=== PATIENT | female | born 1995 | race African-American/Black ===

== ENCOUNTER 2023-08-31 00:13 | Observation (INO) | payer MEDICAID, SELFPAY ==
[2023-08-31] VITALS (13 sets, daily range): BP systolic 115–143; BP diastolic 66–90; PULSE 66–87; RESP 16; TEMP 36.6–36.8; O2SAT 97–99; BMI 22.2
[2023-08-31 01:22] LABS: Hematocrit 32.7 % (33.0-51.0); Hemoglobin* 10.7 gm/dL (12.0-16.0); Mean Corpuscular HGB Conc 33 gm/dL (32-36); Mean Corpuscular Hemoglobin 30 pg (26-34); Mean Corpuscular Volume 92 fL (80-100); Platelet Count* 257 K/uL (140-440); Red Blood Count 3.56 m/uL (4.00-5.20); White Blood Count* 5.51 K/uL (4.50-11.00)
[2023-08-31 01:23] LABS: Slide Review Reflex No
[2023-08-31 01:39] LABS: Total Protein Urine < 5 mg/dL
[2023-08-31 01:40] LABS: Creatinine Urine 131.4 mg/dL
--- NOTE | 2023-08-31 01:44 | P.OBLDTN_ITS ---
OB - Triage/Final Diagnosis Visit Information Time Seen by Provider: 01:44 Date Seen: 08/31/23 Date of evaluation: 08/31/23 Narrative: Josue is a 27 year old 4 para 4004 at status post normal spontaneous vaginal delivery. She is currently day 7. She presented to her home hospital ([place] [address]) with a headache. She was found to have mild range in blood pressures 140s -150s/90s-100s. [place] [address] requested a transfer due to bed shortage. Prior to transfer, [place] [address] reports that her headache improved with toradol and her BP decreased to 130s/80-90s. Her PreE labs were within normal limits (Plt 249, ALT 31/ AST 26, Cr 0.52). I assessed patient upon her arrival. She was completely asymptomatic and all her BP were within normal limits. I ordered another set of PreE labs upon admission. It was significant for a bump in her AST to 48, otherwise, wnl. Patient is reluctant to stay given that she feels better. I recommended that she stays overnight for BP monitoring and another set of repeat labs in the AM prior to discharge. Patient denies fever, chills, chest pain, SOB, n/v, headache, vision changes, RUQ pain, or dizziness. Update: AM lab showed elevation in AST to 71. Physical exam: General: No acute distress Psych: Alert and oriented x4, full affect HEENT: Normocephalic, atraumatic Neck: No cervical adenopathy, no thyromegaly Heart: Regular rate and rhythm, no murmur rub or gallop Lungs: Clear to auscultation bilaterally Abdomen: Normoactive bowel sounds, soft, no tenderness, rebound, or guarding, no masses, no hepatosplenomegaly, no hernias Skin: No lesions or rashes. Celeste on her legs Lower extremities: No edema or erythema Pelvic exam: Deferred GHTN with severe features ? Based on AST 2x the upper limit of normal. P/C ratio 0.00 ? BPs 110-130s/60-80s ? Symptoms: initially presented with headache that has resolved with Tordol x 1 ? Magnesium: Will start Magnesium for seizure ppx for 24 hours ? IV antihypertensives: currently unindicated ? Pre-eclampsia labs on 08/31/2023: Hgb 10.9 Plt 248 Cr 0.4 ALT 33 AST 71 ? 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
[2023-08-31 01:52] LABS: Aspartate Amino Transferase* 48 U/L (12-35); Creatinine* 0.5 mg/dL (0.5-1.5); Est. Creatinine Clearance* 193.31; Estimated Glomerular Filt Rate 131 ml/min
[2023-08-31 01:53] LABS: Alanine Aminotransferase* 35 U/L (4-35); Blood Urea Nitrogen* 14 mg/dL (5-24)
[2023-08-31] MEDS: ACETAMINOPHEN 500 MG TABLET 1000 MG PO ×2 (06:15→14:11)
[2023-08-31 07:09] LABS: Hematocrit 33.8 % (33.0-51.0); Hemoglobin* 10.9 gm/dL (12.0-16.0); Mean Corpuscular HGB Conc 32 gm/dL (32-36); Mean Corpuscular Hemoglobin 30 pg (26-34); Mean Corpuscular Volume 92 fL (80-100); Platelet Count* 248 K/uL (140-440); Red Blood Count 3.67 m/uL (4.00-5.20); White Blood Count* 5.02 K/uL (4.50-11.00)
[2023-08-31 07:13] LABS: Slide Review Reflex No
[2023-08-31 07:21] LABS: Alanine Aminotransferase* 33 U/L (4-35); Aspartate Amino Transferase* 71 U/L (12-35); Blood Urea Nitrogen* 12 mg/dL (5-24); Creatinine* 0.4 mg/dL (0.5-1.5); Est. Creatinine Clearance* 241.64; Estimated Glomerular Filt Rate 138 ml/min
[2023-08-31] MEDS: MAGNESIUM IV 4 GM/100 ML PIGGYBACK IVPB (08:22)
[2023-08-31] MEDS: LACTATED RINGERS 1000 ML 1,000 ML 75 ML IV ×2 (08:22→21:20)
[2023-08-31] MEDS: IBUPROFEN 600 MG TABLET PO ×2 (12:45→19:31)
[2023-09-01] MEDS: ACETAMINOPHEN 500 MG TABLET 1000 MG PO (00:59)
[2023-09-01 01:00] VITALS: BP 116/75; PULSE 87; RESP 16; TEMP 36.4; O2SAT 98
[2023-09-01] MEDS: IBUPROFEN 600 MG TABLET PO ×2 (03:02→09:06)
[2023-09-01 03:13] VITALS: BP 123/80; PULSE 62; RESP 16; TEMP 36.3; O2SAT 98
[2023-09-01 07:40] VITALS: BP 145/80; PULSE 92; RESP 16; TEMP 36.6; O2SAT 97
[2023-09-01 08:00] VITALS: BP 154/102
[2023-09-01 08:12] LABS: Hematocrit 39.6 % (33.0-51.0); Hemoglobin* 12.8 gm/dL (12.0-16.0); Mean Corpuscular HGB Conc 32 gm/dL (32-36); Mean Corpuscular Hemoglobin 30 pg (26-34); Mean Corpuscular Volume 91 fL (80-100); Platelet Count* 291 K/uL (140-440); Red Blood Count 4.34 m/uL (4.00-5.20); White Blood Count* 4.54 K/uL (4.50-11.00)
[2023-09-01] MEDS: NIFEdipine 30 MG TAB.ER.24 PO (08:12)
[2023-09-01 08:17] LABS: Slide Review Reflex No
--- NOTE | 2023-09-01 08:21 | PM.OBPNVD1 ---
OB - PN:Subj Subjective Time Seen by Provider: 08:00 Date Seen: 09/01/23 Narrative: The patient complains of feeling dizzy on the magnesium infusion. Headache is resolved. No other complaints. OB - PN: Obj Exam Physical Exam: Vital signs: Temp Pulse Resp BP Pulse Ox O2 Del Method 98 F 92 16 154/102 H 97 Room Air 09/01/23 07:40 09/01/23 07:40 09/01/23 07:40 09/01/23 08:00 09/01/23 07:40 09/01/23 07:40 Constitutional: Constitutional: no acute distress Routine Respiratory Exam: Respiratory: Present CTA bilaterally; Absent respiratory distress Routine Cardiovascular Exam: Cardiovascular: Present RRR; Absent murmur Routine Extremities Exam: Extremities: Present normal inspection and pedal edema; Absent calf tenderness Routine Neurological Exam: Neurological: Present alert and oriented X3 Routine Psychiatric Exam: Psychiatric: Present normal affect OB - PN: Obj Data Labs Labs: Laboratory Results - last 24 hr 09/01/23 08:01 WBC 4.54 RBC 4.34 Hgb 12.8 Hct 39.6 MCV 91 MCH 30 MCHC 32 Plt Count 291 OB - PN: A/P Delivery Assessment and Plan (1) Pre-eclampsia in period: Status: Acute Plan 1. Magnesium sulfate infusion is due to be discontinued at 8:30 a.m. this morning. Blood pressures have been creeping up. Will start nifedipine ER 30 mg daily. Continue to monitor blood pressures. 2. AST had been trending upwards. Will check another set of labs this morning. Plan day: 8
[2023-09-01 08:27] LABS: Alanine Aminotransferase* 30 U/L (4-35); Aspartate Amino Transferase* 40 U/L (12-35); Blood Urea Nitrogen* 9 mg/dL (5-24); Creatinine* 0.4 mg/dL (0.5-1.5); Est. Creatinine Clearance* 241.64; Estimated Glomerular Filt Rate 138 ml/min
[2023-09-01 10:29] VITALS: BP 130/80; PULSE 92; RESP 16; TEMP 36.6; O2SAT 96
[2023-09-01 13:56] VITALS: BP 138/92; PULSE 82; RESP 16; TEMP 36.9; O2SAT 100
--- NOTE | 2023-09-01 16:09 | PM.OBDSVD1 ---
DS: Providers Provider Time Seen by Provider: 16:09 Date Seen: 09/01/23 Date of admission: 08/31/23 00:13 Primary care physician: Michaela Barron Admitting Clinician: Simran Rodriguez MD Attending Physician on discharge: Kristen Goodwin MD Date of Discharge: 09/01/23 DS: Diagnosis Discharge Diagnosis (1) Pre-eclampsia in period: Status: Acute Exam Const: Vital Signs, click to edit/add: Vital Signs - 24 hr 08/31/23 19:48 09/01/23 01:00 09/01/23 03:13 Temperature 97.8 F 97.6 F 97.4 F L Pulse Rate [Blood Pressure Cuff] 69 87 62 Respiratory Rate 16 16 16 Blood Pressure [Le ft Arm] 131/90 H 116/75 123/80 Pulse Oximetry 98 98 98 Oxygen Delivery Me thod Room Air Room Air Room Air 09/01/23 07:40 09/01/23 08:00 09/01/23 10:29 Temperature 98 F 97.9 F Pulse Rate [Blood Pressure Cuff] 92 92 Respiratory Rate 16 16 Blood Pressure [Le ft Arm] 145/80 H 154/102 H 130/80 Pulse Oximetry 97 96 Oxygen Delivery Me thod Room Air Room Air 09/01/23 13:56 Temperature 98.4 F Pulse Rate [Blood Pressure Cuff] 82 Respiratory Rate 16 Blood Pressure [Le ft Arm] 138/92 H Pulse Oximetry 100 Oxygen Delivery Me thod Room Air Documenting provider has reviewed patient's vital signs: yes Common normals: no apparent distress and oriented x3 General appearance: cooperative and comfortable HENMT: Common normals: normocephalic Head and scalp: normocephalic Resp: Common normals: normal respiratory effort Cardio: Common normals: regular rate and regular rhythm Rate: regular rate Rhythm: regular rhythm GI: Common normals: soft to palpation and non-tender Inspection: normal to inspection Palpation: soft Extremity: Common normals: normal to inspection and no pedal edema Neuro: Common normals: oriented x3 Psych: Common normals: affect normal OB - DS: Summary Hospital Course Hospital Course: The patient is a 27 year old G 4 P 4004 that was admitted to the Center on 08/31/23 for preeclampsia with severe features on post day number 7. She had presented to her home hospital ([facility]) with a headache. She was found to have mild range in blood pressures 140s -150s/90s-100s. [facility] requested a transfer due to bed shortage. Her PreE labs were initially within normal limits (Plt 249, ALT 31/ AST 26, Cr 0.52). Labs done on admission to [facility] showed elevation of the AST to 71. The patient was admitted and started on magnesium sulfate infusion. This was continued for 24 hours. Blood pressures were mildly elevated overnight, and she was started on nifedipine ER 30 mg p.o. daily when the magnesium sulfate infusion was discontinued. Blood pressures have remained in the 130s over 80s to 92 since. Her headache is completely resolved, and she feels well. She requested discharge to home. Time Spent with Patient Time attestation: Total time spent providing and/or coordinating discharge services: Discharge Plan Discharge Disposition: Home, Self-Care Date of Admission: 08/31/23 00:13 Attending Provider on Discharge: Kristen Goodwin Primary Care Provider: Michaela Barron Condition: Stable Anticipated Discharge Date/Time: 09/01/23 16:18 Discharge Medications: New nifedipine 30 mg Tablet Extended Release 24hr 30 mg PO DAILY Qty: 60 0RF Discharge Orders: Discharge Order (Routine); Ordered 09/01/23 Ordered By: Kristen Goodwin Additional Instructions: Check blood pressure daily. Call your primary provider if blood pressure greater than 160/110. Follow-up in 1-2 weeks with primary provider for early visit and blood pressure check. Activity Level: Activity as Tolerated Discharge Diet: Regular Follow Up Appointments: Michaela Barron [Primary Care Provider] - Forms: [employer] Info Instructions Lab/Imaging Results Lab Results Labs: Discharge labs from 09/01/2023: Hemoglobin 12.8 Platelets 291 Creatinine 0.4 BUN 9 ALT 30 AST 40
== END 2023-09-01 16:55 | disposition home or self-care (01) ==
PROVIDERS: Obstetrics & Gynecology; Admitting Provider Obstetrics & Gynecology; PCP Internal Medicine; Visit Provider Obstetrics & Gynecology
DX: O14.95 Unspecified pre-eclampsia, complicating the puerperium (principal); R74.01 Elevation of levels of liver transaminase levels; Z86.32 Personal history of gestational diabetes
CPT/HCPCS: 36415; 82565; 82570; 84156; 84450; 84460; 84520; 85027; 96361; 96365; 96366; A9270; G0378; G0379; J3475; J7120